=== PATIENT | male | born 1985 ===

== ENCOUNTER 2018-07-04 18:20 | Emergency (ER) | payer OTHER ==
[2018-07-04 18:39] VITALS: BMI 34.4
[2018-07-04 18:42] VITALS: RESP 18
--- NOTE | 2018-07-04 20:16 | C.PDOC ---
History Of Present Illness 32 year old male presents to the ER with a complaint of right foot pain for the past 2 days. Patient states that while at work 2 days ago a heavy container fell on him causing him to fall and injure his right ankle. He was seen at his employee health clinic who placed him in a splint, gave him crutches, and took x -rays of his right foot but was given no results. Denies weakness or numbness. Time Seen by Provider: 07/04/18 19:25 Chief Complaint (Nursing): Lower Extremity Problem/Injury History Per: Patient History/Exam Limitations: no limitations Onset/Duration Of Symptoms: Days Current Symptoms Are (Timing): Still Present Recent travel outside of the [place]: No - Ankle/Foot Description Of Injury: Fell Currently Unable To: Bear Weight Past Medical History Reviewed: Historical Data, Nursing Documentation, Vital Signs Vital Signs: Last Vital Signs Temp 99 F 07/04/18 20:56 Pulse 99 H 07/04/18 20:56 Resp 18 07/04/18 20:56 BP 138/93 H 07/04/18 20:56 Pulse Ox 99 07/04/18 20:56 Surgical History: Appendectomy Family History: States: Unknown Family Hx - Social History Hx Alcohol Use: Yes Hx Substance Use: No - Immunization History Hx Tetanus Toxoid Vaccination: No Hx Influenza Vaccination: No Hx Pneumococcal Vaccination: No Review Of Systems Musculoskeletal: Positive for: Foot Pain Neurological: Negative for: Weakness, Numbness Physical Exam - Physical Exam Appears: Non-toxic Skin: Warm, Dry Head: Atraumatic, Normacephalic Eye(s): bilateral: Normal Inspection Extremity: Capillary Refill (<2 seconds), Other (Right foot ecchymotic, swollen , tenderness to lateral and medial malleolus) Pulses: Left Dorsalis Pedis: Normal, Right Dorsalis Pedis: Normal Neurological/Psych: Oriented x3, Normal Speech, Normal Motor, Normal Sensation Gait: Unable To Assess ED Course And Treatment O2 Sat by Pulse Oximetry: 97 (Room air) Pulse Ox Interpretation: Normal - Other Rad Right foot x-ray X-Ray: Interpreted by Me, Viewed By Me Interpretation: No acute fractures or dislocations Right ankle x-ray X-Ray: Interpreted by Me, Viewed By Me Interpretation: Spiral fracture of lateral malleolus, questionable fracture of posterior malleolus. Progress Note: Right foot x-ray and right ankle x-ray ordered, results were positive for fracture. Patient placed in posterior u splint by CP and checked by me. Patient advised to follow up with ortho for further evaluation. Disposition - Disposition Referrals: Bryan Guy III, MD [Staff Provider] - Disposition: HOME/ ROUTINE Disposition Time: 20:13 Condition: STABLE Additional Instructions: Follow up with Orthopedist within 2-3 days. Return to ED if feel worse. Instructions: Ankle Fracture (DC) Forms: [employer] (Estonian), Work Excuse - Clinical Impression Clinical Impression: Ankle fracture - PA / ONCOLOGY REP / Resident Statement MD/DO has reviewed & agrees with the documentation as recorded. - Scribe Statement The provider has reviewed the documentation as recorded by the Scribkassidy Doll All medical record entries made by the Scribe were at my direction and personally dictated by me. I have reviewed the chart and agree that the record accurately reflects my personal performance of the history, physical exam, medical decision making, and the department course for this patient. I have also personally directed, reviewed, and agree with the discharge instructions and disposition.
[2018-07-04 20:57] VITALS: BP 138/93; PULSE 99; TEMP 99
[2018-07-05 00:01] VITALS: O2SAT 97
--- NOTE | 2018-07-05 09:05 | RAD ---
Date of service: 07/04/2018 PROCEDURE: Right Foot Radiographs. HISTORY: injury COMPARISON: None. FINDINGS: BONES: No acute fracture or destructive bony lesion identified. JOINTS: Normal. SOFT TISSUES: Normal. OTHER FINDINGS: None. IMPRESSION: Unremarkable right foot radiographs.
--- NOTE | 2018-07-05 09:40 | RAD ---
Date of service: 07/04/2018 PROCEDURE: Right Ankle Radiographs. HISTORY: injury COMPARISON: None FINDINGS: BONES: Oblique fracture superior segment lateral malleolus right ankle. No dislocation. No subluxation. No destructive bony lesion identified. JOINTS: Normal. No osteoarthritis. Ankle mortise maintained. Talar dome intact SOFT TISSUES: Diffuse soft edema is seen surrounding the ankle, lateral side predominantly. OTHER FINDINGS: None. IMPRESSION: Nondisplaced fracture for segment right lateral malleolus. No dislocation. Prominent overlying soft tissue edema.
== END 2018-07-04 20:57 | disposition home or self-care (01) ==
LOC: MERGE 18:20 → C.ER 18:20
DX: S82.64XA Nondisplaced fracture of lateral malleolus of right fibula, initial encounter for closed fracture (principal); W20.8XXA Other cause of strike by thrown, projected or falling object, initial encounter; Y99.0 Civilian activity done for income or pay

== ENCOUNTER 2019-01-29 15:52 | Outpatient (CLI) | payer OTHER | END 2019-01-29 15:53 | disposition home or self-care (01) | LOC: C.RADH 15:52 | DX: S93.431A Sprain of tibiofibular ligament of right ankle, initial encounter (principal); S93.401A Sprain of unspecified ligament of right ankle, initial encounter; S82.61XP Displaced fracture of lateral malleolus of right fibula, subsequent encounter for closed fracture with malunion ==

== ENCOUNTER 2019-02-27 07:46 | Day surgery (SDC) | payer OTHER ==
[2019-01-28 09:21] VITALS: BMI 33.5
[2019-02-27] MEDS ORDERED: ceFAZolin 1 gm in NS 2 GM/200 ML BAG IVPB ONE (13:15)
[2019-02-27] MEDS ORDERED: Midazolam 2 MG/2 ML VIAL ONE (14:05)
[2019-02-27] MEDS ORDERED: Propofol 10 mg/ml Inj (20 ML) ONE (14:11)
[2019-02-27] MEDS ORDERED: Succinylcholine Chloride 20 mg/ml Syr (5 ml) IV ONE (14:11)
[2019-02-27] MEDS ORDERED: Rocuronium 10 mg/ml (10 ml) ONE (15:26)
[2019-02-27] MEDS ORDERED: Neostigmine 1:1000 (1 mg/ml) Inj ONE (15:26)
[2019-02-27] MEDS ORDERED: Morphine 4 MG/ML VIAL ONE (16:24)
[2019-02-27] MEDS ORDERED: Oxycodone/Acetaminophen 5/325 mg Tab PO PRN ×2 (17:51)
[2019-02-27] MEDS: HYDROmorphone 0.5 mg/0.5 ml ISec IVP PRN ×2 (17:56→18:04)
[2019-02-27] MEDS ORDERED: Ropivacaine 0.5% PF (20 ml) inj INJ ONE ×2 (18:38)
--- NOTE | 2019-02-27 20:35 | PCM.ANESB2 ---
Popliteal Nerve Block - Popliteal Nerve Block Date of Procedure: 02/27/19 Anesthesiologist: Jimmie Pre-Procedure Diagnosis: s/p right ankle ORIF Procedure Performed: Popliteal Nerve Block Right - Procedure Popliteal Nerve Block: 18:45-19:00, right sciatic nerve block, popliteal approach, done in PACU under ultrasound guidance. Under sterile conditions, 30 cc 0.5% ropivacaine injected, 5 cc increments, negative aspiration throughout, 4" stimuplex needle. VSS, patient tolerated procedure well. Block requested by Dr. Andrew Baker for post-op pain control.
[2019-02-27 22:56] VITALS: BP 114/79; PULSE 85; RESP 13; TEMP 98; O2SAT 98
--- NOTE | 2019-02-28 15:37 | RAD ---
Date of service: 02/27/2019 PROCEDURE: Right Ankle Radiographs. HISTORY: s/p R ankle ORIF COMPARISON: None available. TECHNIQUE: 3 views obtained. FINDINGS: BONES: Cast obscures fine bony details. Status post open reduction and internal fixation of fractures in the distal tibia and fibula. A metallic plate and multiple screws are identified in the distal fibula lateral malleolus. Two metallic clips are identified overlying the medial malleolus. There is no acute fracture. Bone alignment and mineralization are normal. JOINTS: Normal. No osteoarthritis. Ankle mortise maintained. Talar dome intact SOFT TISSUES: There is mild periarticular soft tissue swelling. OTHER FINDINGS: There are multiple lateral and few medial skin heather. IMPRESSION: Status post open reduction and internal fixation of distal fibular and tibial fractures. Expected postoperative changes in the periarticular soft tissues. No acute findings.
--- NOTE | 2019-03-02 01:15 | PCM.SURG1 ---
Surgeon's Initial Post Op Note - Surgeon's Notes Surgeon: Carola Gooden MD [employer] Representative: Chad Marquez PA-C Type of Anesthesia: General Endo, [facility] Pre-Operative Diagnosis: R ankle: #1 distal fibual displaced fracture delayed union/ malunion (shortened, rotated). #2 syndesmotic instability. #3 ATFL tear w/ mild instability. 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 #2 syndesmotic instability. #3 ATFL tear (stable/healed). 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 #3 ATFL tear (stable/healed). #4 healed non-displaced posterior mal fx Operation Performed: R ankle: #1 syndesmotic repair. #2 internal fixation (in situ, no osteotomy or reduction performed) lateral mal fx delayed union/malunion. #3 bone graft to delayed union site. #4 resection/debridement hypertrophic non-union/ delayed union. #5 closed treatment ATFL tear/ posterior mal fx. #6 placement in well padded short leg cast (bivalved) Specimen/Specimens Removed: specimen= non. tourniquet time= 80 min at 250 mmHg. complications= none. implants= Arthrex: #1 5-hole distal fibula precontoured locking plate. #2 syndesmotic tightrope system x2. #3 stimublast bone graft 1cc Estimated Blood Loss: EBL {In ML}: 20 Blood Products Given: N/A Drains Used: No Drains Post-Op Condition: Good Date of Surgery/Procedure: 02/27/19 Time of Surgery/Procedure: 13:00
--- NOTE | 2019-03-02 14:41 | RAD ---
Date of service: 02/27/2019 PROCEDURE: Intraoperative Fluoroscopy. HISTORY: Open reduction internal fixation right ankle FINDINGS: Fluoroscopic assistance was provided for open reduction internal fixation of a right ankle fracture. Please refer to the operative report from KAILASH Moreno, , MD [facility].
--- NOTE | 2019-03-11 16:03 | OP ---
PROCEDURE DATE: 02/27/2019 PREOPERATIVE DIAGNOSES: Right ankle: 1. Distal fibula displaced fracture, delayed union/malunion (shortened, rotated). 2. Syndesmotic instability. 3. Anterior talofibular ligament tear with mild instability. 4. Healed nondisplaced posterior malleolus fracture. POSTOPERATIVE DIAGNOSES: Right ankle: 1. 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 2. Syndesmotic instability. 3. Anterior talofibular ligament tear (stable/healed). 4. Healed nondisplaced posterior malleolus fracture. PROCEDURE: Right ankle open: 1. Syndesmotic repair. 2. Internal fixation (in situ fixation, no osteotomy or reduction performed) lateral malleolus fracture, delayed union/malunion. 3. Resection/debridement of hypertrophic nonunion/delayed union in progress. 4. Bone graft to delayed union site. 5. Closed treatment of anterior talofibular ligament tear/posterior malleolus healing fracture. 6. Placement in well-padded short leg cast, bivalved. SURGEON: Carola Gooden MD CUSTOMER CARE MANAGER: Chad Marquez PA-C. JUSTIFICATION FOR CUSTOMER CARE MANAGER: Chad Marquez is a certified physician recruiting assistant whose skilled surgical services were an absolute necessity for successful completion of the procedure as he provided skilled surgical assistance with positioning of the patient, positioning of extremity, management of surgical burkett, retraction of neurovascular structures, placement of temporary K-wire fixation and placement of distal fibula locking plate, final fixation of distal fibula precontoured locking plate, placement of syndesmotic fixation, debridement of developing hypertrophic nonunion and placement of bone graft, wound closure, placement of short leg cast, and bivalve. Chad Marquez was present for the entire case and was an absolute necessity for successful completion of the procedure. TYPE OF ANESTHESIA: General endotracheal anesthesia with a postop regional nerve block placed by Anesthesia staff in PACU. DRAINS: None. ESTIMATED BLOOD LOSS: 20 mL TOURNIQUET TIME: 80 minutes at 250 mmHg. DISPOSITION: The patient was extubated and transferred to PACU in stable condition and tolerated the procedure well. IMPLANTS: 1. Arthrex #1 5-hole distal fibula precontoured locking plate. 2. Syndesmotic TightRope system x2. 3. StimuBlast bone graft 1 mL putty. COMPLICATIONS: None. INDICATIONS FOR SURGERY: The patient is a 33-year-old male with no significant past medical history, who presents to the office for the first time under my care on 10/07/2018 with right ankle pain and swelling since injury on 07/02/2018. This is a [place] Workman's comp case with a date of injury at work on 07/02/2018. He works for a [employer], and on 07/02/2018, had an incident at work where the dumpster that they were removing slipped off of the mechanical device used to lift the dumpster and landed on the patient resulting in him falling and landing on his right ankle with development of immediate 10/10 pain localized to the right ankle and difficulty with weight bearing. He was initially seen at [facility], and after review of imaging, he was indicated for surgery in the form of open reduction internal fixation, distal fibular fracture and all related indicated procedures. Initially, he refused surgery and wanted to be treated nonoperatively at which point he was placed in a fracture boot and was weightbearing since then. Review of records from [facility] show that initial recommendation was for casting and nonweightbearing for which the patient did not comply as well as the indication for surgery. He continued with nonoperative treatment and eventually [facility] closed down and the patient was lost to follow up. He was referred by his Workman's Comp screw machine adjuster automatic for evaluation which he came in for the first time on 10/07/2018. Initial evaluation in the office: Physical examination showed swollen right ankle globally with skin intact, no warmth, no erythema, max tenderness to palpation at the distal fibula and distal tib-fib/syndesmosis as well as the posterior malleolus. X-rays in the office showed displaced distal fibula fracture with shortening and rotation healing as a malunion with visible gapping anterior. External rotation stress examination performed showed syndesmotic widening. Initial consultation and recommendations with the patient were for him to be placed in a cast and a trial of nonweightbearing which he initially refused. As he refused initial mobilization, he was then referred to physical therapy as at that point in time he had been almost three months since his injury. He was referred for an MRI and a CT to evaluate for healing as well as the syndesmosis. CT of the right ankle done at [facility] on 10/10/2018 was read as, 1. Distal fibular fracture with bone marrow edema, partial healing proximally. Ankle sprain with ligamentous injury. Posttraumatic deformity anterolateral calcaneus. Mild motion degradation. Improved contusion, talar neck. Small ankle joint effusion. This was compared to his previous MRI done on 07/23/2018 when referred by [facility]. Again, this was MRI right ankle done at [facility] in [place] on 10/10/2018. He also went for a CT of the right ankle done at [facility] on 10/10/2018 which was read as, 1. Ununited fracture of the distal fibula with partial healing proximally. 2. Posttraumatic of the anterolateral process of the calcaneus. 3. Small ankle joint effusion. 4. Deformity of the posterior distal tibia from healing fracture. At this followup visit after review of the imaging with the patient, I recommended to him again a period of immobilization and nonweightbearing to allow the fractures to heal for which he refused again and stated that he would be nonweightbearing in the boot. He proceeded to be noncompliant and missed a few of his office visits and had multiple reschedules. Finally at his followup office visit on 02/05/2019, repeat exam showed that he still had max tenderness at the distal fibula as well as the syndesmosis and the posterior malleolus. He still had pain with weightbearing and ambulation. X-rays showed that there was no change in the distal fibula fracture union with gapping anteriorly with evidence of healing in union proximally and posteriorly. External rotation stress examination performed under x-ray by myself showed that there was still significant syndesmotic widening and motion. He was referred for a followup MRI and CT. MRI done at [facility] on 02/11/2019 with comparison to previous imaging discs sent to the radiologist by Worker's comp was read as, 1. Continued healing of the distal fibula metadiaphyseal fracture. 2. Mild effusion at the mortise. 3. Mild effusion involving subtalar joints. 4. 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 5. Mild degenerative changes at the mortise joint. 6. Tenosynovitis, posterior tibial tendon. 7. Absence of anterior talofibular ligament consistent with tear. 8. Calcaneofibular ligament is not well visualized which may represent partial tear. On my review of the MRI, the anterior syndesmotic ligament appeared to be attenuated and disrupted which was read as intact, but as stated before, external rotation at stress examination showed syndesmotic instability in the office. CAT scan of the right ankle done at [facility] on 02/11/2019 with comparison to previous CT done at another facility was read as, 1. Healing of the oblique distal fibula metadiaphyseal fracture with callus formation and partial union, correlate with continued followup to assess complete union. 2. Mild effusion at the mortise joint. Mild effusion at subtalar joint. 3. No other fractures identified. 4. 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 On my review of the CT, there was gapping anterior at the distal fibula fracture with delayed union and malunion visualized as well as cystic areas of incomplete union visualized. At this point in time, it was 8 months since his injury with no overall improvement clinically and inability to return to work since his injury. Finally after multiple discussions in treatment plan and indications and review of imaging being the multiple MRIs and multiple CT as well as x-rays taken in the office, the patient agreed to surgical intervention, but refused the entire treatment plan proposed to him. He was indicated for right ankle evaluation under anesthesia for ligament stability of the ATFL and syndesmosis followed by evaluation of the distal fibula malunion/delayed union. He was indicated for osteotomy of the distal fibula fracture followed by anatomic reduction and internal fixation with precontoured distal fibula locking plate and bone grafting as well as syndesmotic fixation. Initially, he would only agree to the ligament repairs being ATFL and syndesmotic repairs if indicated. I explained to him at length that with the healing fracture of the distal fibula creating stress riser without placement of a plate at the distal fibula with the syndesmotic repair holes would be ill advised and that the construct required to stabilization and that the fracture required absolute stability to finally heal. He stated that he understood and that he did not want the osteotomy under any circumstances. I finally got him to agree to at least allow for debridement of the delayed union portion of his fracture and bone grafting with placement of a precontoured distal fibula plate as absolute fixation to allow him to have a chance at complete union with the syndesmotic fixation, and if indicated, ATFL repair. He understood and accepted the consequences of fibular malunion overall including chronic pain and development of posttraumatic arthritis from the shortened rotated fibula. The risks, benefits, and alternatives of the procedure were discussed at length with the patient with the risks including not limited to malunion, nonunion, infection, neurovascular damage, need for further surgery, development of chronic pain and disability, development of blood clots including DVT and PE, inability to return to preinjury level of activity and occupation, loss of function, loss of limb, need for removal of hardware, development of posttraumatic DJD, anesthesia reactions including . After answering all of his questions, he stated that he understood the risks and wished to proceed with surgery. Again, on multiple occasions, I pleaded with the patient to allow for the osteotomy and anatomic reduction of the distal fibula to maximize the chances of successful healing and yazidism of fibular length to support the ankle for which he refused. Again, he would only agree to in situ fixation of the distal fibula with the precontoured locking distal fibular plate and bone grafting and debridement of the nonunion site with no intervention to the united parts of the fracture, examination under anesthesia of the syndesmosis and the anterior talofibular ligament and repair as indicated. The posterior malleolus fracture appeared to be healing in an acceptable position with some residual deformity and the calcaneus anterior process fracture questionable as to whether or not it was posttraumatic in nature or the result of coalition and misread by previous radiologist. He was scheduled for surgery on 02/20/2019 for which he rescheduled due to personal family matters. He had been scheduled for surgery on multiple occasions in January for which he canceled and rescheduled and missed his repeat followup MRI and CT visits on multiple occasions as well. I had a long discussion with him about compliance and reliability and his responsibility towards his injury and maximizing the chances of successful treatment following the postoperative instructions for which he stated that he understood and he agreed to comply. I have it documented on multiple occasions our discussions about compliance and maximizing the chances of successful healing after surgery as well as the negative impact of accepting a malunion overall and refusing osteotomy for which he has expressed his wishes and that was his surgical plan. Again, our surgical plan was to evaluate the ankle stability under anesthesia followed by proceeding with syndesmotic fixation and anterior talofibular ligament repair as indicated as well as in situ plating of the distal fibula with debridement of the nonunion portion of the fracture and placement of bone graft providing absolute stability overall with no plans osteotomy or reduction of anatomic alignment/fracture reduction. There was no indication for any intervention for the posterior malleolus fracture or the questionable calcaneus fracture. He was referred to his primary care physician for preadmission testing and medical evaluation for which he was also noncompliant and missed multiple visits and finally the procedure was scheduled on 02/27/2019 at [facility] and was actually done on that date. DESCRIPTION OF PROCEDURE: The patient was identified in the preoperative holding area and the right ankle was marked for surgery. Once again as described above, the risks, benefits, and alternatives to the procedure were discussed at length with the patient, and informed consent was obtained and confirmed. Once again, we discussed at length his decision making, and again as described above, he adamantly refused the osteotomy or any reduction attempt at the distal fibular fracture. After brief discussion with the anesthesia staff, he was taken to the operating room and placed on the wall-padded operating room table with all bony prominences and superficial neurovascular structures well-padded with a radiolucent lower extremity attachment. Initial time out was done with the surgeon, anesthesia staff, OR staff, all are in agreement with the patient, procedure being done and extremity being operated on. General anesthesia was administered without difficulty or complication. A tourniquet was placed high on the right thigh and set to 250 mmHg, and after inflation, was inflated for a total time of 80 minutes. Once the patient was under general anesthesia, an examination under anesthesia was then carried out. EXAMINATION UNDER ANESTHESIA: Right ankle with warmth, no erythema, skin intact, there was mild swelling localized to the anterolateral aspect of the ankle. No visible overall deformity was seen. Examination of ligament stability included a 1+ anterior drawer that appeared to be improved for the ATFL injury overall with interval healing from initial examination in the office in 09/2018. The ATFL actually showed good signs of healing of yazidism of stability. Internal rotation stress exam on x-rays showed just mild talar tilt, but overall good ATFL stability. The deltoid ligament exhibited good stability and overall the ankle joint itself showed good stability with no subluxation or margarita dislocation present. External rotation examination under x-ray was performed which showed syndesmotic movement and motion. The distal fibula fracture on careful multiple x-rayed dynamic imaging and multiple oblique imaging showed the distal aspect of the fracture malunion and nonunion with gapping anterior with the partial union proximally. The posterior malleolus showed near complete union with resulting mild deformity, but no instability or motion at the posterior malleolus fracture seen. The anterior calcaneus process, in my opinion, was most likely a coalition or possible combination of trauma with underlying coalition that appeared to be stable and healed. The right lower extremity was prepped and draped in a standard sterile fashion. A final time-out was done with the surgeon, anesthesia staff, OR staff all in agreement with the patient, procedure being done, and the extremity being operated on. Decision was made to proceed with syndesmotic fixation and placement of a distal fibula precontoured locking plate to provide absolute stability to the fracture malunion to allow for healing at the nonunion site as well as debridement of fibrous tissue and placement of bone graft at the nonunion site. The right lower extremity was exsanguinated and the tourniquet was inflated to 250 mmHg for a total tourniquet time of 80 minutes. A posterolateral incision was carried out along the distal fibula to allow full access to the fracture and syndesmotic fixation. Incision was made through skin down subcutaneous tissue while maintaining good hemostasis down to the level of the peroneal fascia. The peroneal retinaculum was left intact and the peroneal tendons were retracted posteriorly. The periosteum overlying the distal fibula was sharply incised and elevated posterior and anterior and preserved for repair over the plate. He had good healthy thickened periosteum that was amenable to repair and incorporating into wound closure over the plate. The fracture was identified and indeed the fibula itself was shortened and rotated as a developing malunion. The posterior proximal aspect of the fracture was united and was stable. The distal and anterior aspect of the fracture was developing a hypertrophic nonunion with copious amount of fibrous tissue present, but no definitive healing. There was a growth of tissue at the anterior spike as well as fibrous nonunion tissue that appeared to be causing anterior impingement at the ankle joint as well. With the use of a rongeur, this was debrided back to chitimacha fibular bone. The anterior spike was also present, and at this point in time, with the patient's decision making and presence of possible anterior impingement at the ankle joint itself was debrided back just slightly to avoid any impingement issues in the future. The fracture plane itself was identified and indeed there was no interval healing with some fibrous tissue present which was debrided and allowed for full access to the cystic structures that were present as well as the fracture itself. At that point in time, a 5-hole distal fibular precontoured locking plate from Arthrex was selected and placed in optimal position confirmed on biplanar fluoroscopic imaging. With the use of BB Tack K-wires, the plate was temporarily fixed to the lateral aspect of the distal fibula and bent and contoured to match his anatomy. The distal cluster 2.7 locking unicortical screws were placed five in total as well as two proximal bicortical 3.5 mm nonlocking screws. Optimal holes for placement of the syndesmotic fixation were identified and indeed did avoid the fracture plane, and the external rotation stress examination was carried out again under biplanar and dynamic fluoroscopy, and once again it was demonstrated the syndesmotic instability and widening/syndesmotic motion. A cotton test was performed as well demonstrating the syndesmotic instability and motion. A large periarticular clamp was then placed applying pressure and closing down the syndesmosis between the lateral malleolus and medial malleolus after a stab incision was created directly over the medial malleolus. With the periarticular clamp in position, repeat external rotation on stress examination was carried out and indeed the large clamp was providing good syndesmotic stability. Using the syndesmotic TightRope system from [employer]th[employer], a K-wire was passed at the distal fibula locking plate, most distal hole, approximately 1 cm proximal to the tibiotalar joint to 1.5 cm proximal to the tibiotalar joint. K-wire was advanced centered on the hole with 20-degree posterior to anterior inclination parallel to the tibiotalar joint directly across all four cortexes being the near and far cortex of the fibula and the near and far cortex of the distal tibia. Biplanar fluoroscopy was used to confirm that the K-wire was in good position and indeed had good posterior to anterior inclination. Cannulated drill was passed over through all four cortexes and the syndesmotic TightRope system was passed through the tunnel created through all four cortexes with the medial button flipped under direct fluoroscopic visualization with no inner postop tissue seen. Once the button was flipped, the TightRope lateral button was advanced down and the TightRope system was cinched, and the lateral button was placed well seated within the hole at the distal fibula plate flushed with good tension achieved. These steps were then repeated for the next hole most proximal to the first distal syndesmotic fixation system. The steps were repeated with placement of the K-wire parallel to the tibiotalar joint with less posterior to anterior inclination to avoid convergence of the two syndesmotic tunnels. The cannulated drill was used to drill all four cortexes and a second syndesmotic system was passed at the proximal hole just proximal to the first syndesmotic system. The medial button was flipped on to the medial aspect of the distal tibia cortex with no inner postop tissue confirmed under fluoroscopic imaging and the TightRope system was cinched down with the lateral button well seated within the distal fibular plate and good tension achieved. Once both syndesmotic TightRope systems were cinched down to maximal tightness, the large periarticular clamp was removed and repeat external rotation stress exam was carried out and indeed syndesmotic stability had been restored. Cotton test was performed which was found to be negative as well. A final 3.5 mm bicortical screw was placed proximally and all screws were tightened. Final fluoroscopic biplanar imaging and dynamic imaging were taken to confirm good placement of hardware and no intraarticular extension of the unicortical screws. The tourniquet was deflated for a total tourniquet time of 80 minutes at 250 mmHg and good hemostasis was achieved. At the distal aspect of the wound, we actually had access to the tibiotalar joint and a small arthrotomy was carried out to evaluate the ankle joint. The ankle joint on gross evaluation was found to be intact with no significant cartilage injury and no significant loose bodies. There was some anterior synovitis which was debrided while maintaining good hemostasis as an open synovectomy which was carried out successfully; and the anterior capsule was then reapproximated with #1 Vicryl suture after copious irrigation of the ankle joint was performed formally with 1000 mL of normal saline. The wound itself was then copiously irrigated with another 1000 mL of normal saline and antibiotic irrigation in the form of Irrisept. We then started wound closure with use of #1 Vicryl suture for a deep tissue and repair of the periosteum over the plate as well as repair of the peroneal retinaculum. Subcutaneous tissue was reapproximated with 2-0 Vicryl suture followed by heather for skin. Sterile dressings were applied followed by a layer of sterile cast padding from the toes up to the tibial tuberosity. A well-padded short leg cast was then placed with a good mold achieved to close down the ATFL space placing the ankle in a little bit of eversion at 90 degrees neutral and good mold placed to support the posterior malleolus fracture as well as the lateral malleolus and the syndesmotic fixation. Once the cast hardened, the patient was then extubated and transferred to PACU in stable condition and tolerated the procedure well. JUSTIFICATION FOR CODING AND BILLIN. In situ internal fixation for the distal fibular fracture was carried out successfully and therefore was coded and billed. 2. Syndesmotic fixation/repair was carried out successfully and therefore was coded and billed. 3. Debridement of the fracture site and placement of bone graft was placed successfully and therefore was coded and billed. 4. Arthrotomy to the ankle joint and irrigation and debridement with open synovectomy was carried out successfully and therefore was coded and billed. 5. Closed treatment of the posterior malleolus fracture, calcaneus fracture, and ATFL was carried out successfully and therefore was coded and billed. 6. A well-padded short leg cast was placed that was then bivalved which was coded and billed. DISPOSITION: The patient will be discharged home once he had recovered from anesthesia. The short leg cast will be bivalved once it hardens and recovery. He will be strict nonweightbearing to the right lower extremity and ice and elevate as much as possible above the level of his heart. He will follow up in my office in [facility] within one week and already has his postoperative appointment set up. He has been given the prescription for Percocet as pain control. I had significant amount of fear as to the level of sedentary activity the patient will have after this type of surgery as he does not deal with pain well and tends to display predisposition to sedentary lifestyle with a larger size with borderline obesity, and therefore, he was indicated for DVT prophylaxis. We discussed multiple options for which he agreed to Lovenox 40 mg injection subcutaneous once daily for a total of two weeks starting postoperative day number 2 and a prescription was supplied. He will contact me directly if there are any questions or concerns. Carola Gooden MD
== END 2019-02-27 22:20 | disposition home or self-care (01) ==
LOC: C.SDS 07:46
PROVIDERS: ATTEND Student in an Organized Health Care Education/Training Program
DX: S93.431A Sprain of tibiofibular ligament of right ankle, initial encounter (principal); S93.401A Sprain of unspecified ligament of right ankle, initial encounter; S82.61XD Displaced fracture of lateral malleolus of right fibula, subsequent encounter for closed fracture with routine healing
CPT/HCPCS: 11044; 27792; 73610; C1713; J0690; J1170; J1885; J2250; J2270; J2405; J2704; J2710; J3010